=== PATIENT | female | born 1955 | race Caucasian/White ===

== ENCOUNTER 2019-05-02 07:34 | Observation (INO) | payer BC ==
[~2019-05-02 07:34] MED LIST: CEFAZOLIN 2 GM/50 ML (PMX) 50 ML IVPB
[2019-05-02] MEDS: ACETAMINOPHEN 500 MG TAB PO (08:19)
[2019-05-02] MEDS: SOD CHLORIDE 0.9% 1,000 ML IV (08:20)
[2019-05-02] MEDS ORDERED: CEFAZOLIN 1 GM INJ (08:37)
[2019-05-02] MEDS ORDERED: METOCLOPRAMIDE 10 MG INJ (08:37)
[2019-05-02] MEDS ORDERED: FENTAnyl 50 MCG/ML VIAL (08:37)
[2019-05-02] MEDS ORDERED: MIDAZOLAM 1 MG/ML 2 ML INJ (08:37)
[2019-05-02] MEDS ORDERED: FAMOTIDINE 20 MG INJ (08:37)
[2019-05-02] MEDS ORDERED: SEVOFLURANE 15 MIN (08:37)
[2019-05-02] MEDS ORDERED: ONDANSETRON 4 MG INJ (08:37)
[2019-05-02] MEDS ORDERED: ROCURONIUM 50 MG INJ (08:37)
[2019-05-02] MEDS ORDERED: PROPOFOL 40 ML (08:37)
[2019-05-02] MEDS ORDERED: ROPIVACAINE 0.5 % 30 ML VIAL (08:52)
[2019-05-02] MEDS ORDERED: DEXAMETHASONE 4 MG/ML 5 ML INJ (09:56)
[2019-05-02] MEDS ORDERED: KETOROLAC 30 MG INJ (09:56)
[2019-05-02] MEDS ORDERED: EPINEPHrine 0.1 MG/ML SYG (09:56)
[2019-05-02] MEDS ORDERED: SUGAMMADEX SODIUM 200 MG/2 ML VIAL IV (10:09)
[2019-05-02] MEDS ORDERED: DIPHENHYDRAMINE 50 MG INJ IV (10:30)
[2019-05-02] MEDS ORDERED: HYDROCODONE/APAP (5/325) TAB PO (10:30)
[2019-05-02] MEDS ORDERED: LABETALOL HCL 20MG INJ IV (10:30)
[2019-05-02] MEDS ORDERED: ONDANSETRON 4 MG INJ IV ×2 (10:30)
[2019-05-02] MEDS ORDERED: ALBUTEROL 0.083% (NEB) 2.5 MG/3 ML AMP HHN (10:30)
[2019-05-02] MEDS ORDERED: morphine 2 MG INJ IV ×3 (10:30)
[2019-05-02] MEDS ORDERED: HYDROmorphONE 1 MG/5 ML IV SYRINGE IV (10:30)
[2019-05-02] MEDS ORDERED: OXYCODONE/ACETAMINOPHEN (5/325) TAB PO ×2 (10:30)
[2019-05-02] MEDS ORDERED: FENTAnyl 50 MCG/ML VIAL IV ×2 (10:30)
[2019-05-02] MEDS ORDERED: MEPERIDINE 25 MG INJ (10:36)
[2019-05-02] MEDS: MEPERIDINE 25 MG INJ IV (10:45)
[2019-05-02] MEDS: HYDROmorphONE 1 MG/5 ML IV SYRINGE IV ×3 (10:59→11:13)
[2019-05-02] MEDS: D5W-0.45 NACL + KCL 20 MEQ 1,000 ML IV ×2 (12:00→20:19)
[2019-05-02] MEDS ORDERED: hydrALAzine 20 MG INJ IV (12:30)
[2019-05-02] MEDS: HYDROCODONE/APAP (5/325) TAB PO ×2 (15:13→23:46)
[2019-05-02 16:34] LABS: ADD MAN DIFF? NO
[2019-05-02 16:37] LABS: BASOPHILS % 0.1 % (0.0-2.0); HEMATOCRIT 36.5 % (37.0-47.0); HEMOGLOBIN 12.7 g/dl (12.0-16.0); LYMPHOCYTES # 0.7 10^3/ul (0.8-2.9); MEAN CORPUSCULAR HEMOGLOBIN 30.6 pg (29.0-33.0); MEAN CORPUSCULAR HGB CONC 34.8 g/dl (32.0-37.0); MEAN PLATELET VOLUME 11.6 fl (7.4-10.4); MONOCYTE # 0.2 10^3/ul (0.3-0.9); MONOCYTES % 1.5 % (0.0-11.0); NEUTROPHIL # 8.8 10^3/ul (1.6-7.5); PLATELET COUNT 167 10^3/UL (140-415); RED BLOOD COUNT 4.15 10^6/ul (4.20-5.40); RED CELL DISTRIBUTION WIDTH 12.7 % (11.5-14.5)
[2019-05-02 16:37] LABS: WHITE BLOOD COUNT 9.7 10^3/ul (4.8-10.8)
[2019-05-02 17:10] LABS: ALANINE AMINOTRANSFERASE 63 IU/L (13-69); ALBUMIN 4.2 g/dl (3.3-4.9); ALBUMIN/GLOBULIN RATIO 1.44; ALKALINE PHOSPHATASE 56 IU/L (42-121); ANION GAP 9 (5-13); ASPARTATE AMINO TRANSFERASE 43 IU/L (15-46); BILIRUBIN,INDIRECT 0.4 mg/dl (0-1.1); BILIRUBIN,TOTAL 0.4 mg/dl (0.2-1.3); BLOOD UREA NITROGEN 16 mg/dl (7-20); CALCIUM 8.8 mg/dl (8.4-10.2); CARBON DIOXIDE 23 mmol/L (21-31); CHLORIDE 109 mmol/L (97-110); CREATININE 0.47 mg/dl (0.44-1.00); Estimated GFR > 60 mL/min (>60); GLUCOSE 157 mg/dl (70-220); MAGNESIUM 1.7 mg/dl (1.7-2.5); PHOSPHORUS 3.2 mg/dl (2.5-4.9); POTASSIUM 4.1 mmol/L (3.5-5.1); SODIUM 141 mmol/L (135-144); TOTAL PROTEIN 7.1 g/dl (6.1-8.1)
[2019-05-02] MEDS: ACETAMINOPHEN 1000MG/100ML IV 100 ML IVPB (20:26)
[2019-05-03] MEDS: D5W-0.45 NACL + KCL 20 MEQ 1,000 ML IV (02:29)
[2019-05-03 05:29] LABS: ADD MAN DIFF? NO
[2019-05-03] MEDS: LEVOTHYROXINE 50 MCG TAB PO (05:30)
[2019-05-03 05:32] LABS: BASOPHILS % 0.1 % (0.0-2.0); HEMATOCRIT 36.1 % (37.0-47.0); HEMOGLOBIN 12.3 g/dl (12.0-16.0); LYMPHOCYTES # 1.3 10^3/ul (0.8-2.9); LYMPHOCYTES % 12.2 % (15.0-51.0); MEAN CORPUSCULAR HGB CONC 34.1 g/dl (32.0-37.0); MEAN PLATELET VOLUME 11.9 fl (7.4-10.4); MONOCYTE # 0.8 10^3/ul (0.3-0.9); MONOCYTES % 7.3 % (0.0-11.0); NEUTROPHIL # 8.8 10^3/ul (1.6-7.5); PLATELET COUNT 187 10^3/UL (140-415); RED CELL DISTRIBUTION WIDTH 12.8 % (11.5-14.5)
[2019-05-03 06:03] LABS: CHOLESTEROL 267 mg/dl (100-200)
[2019-05-03 06:03] LABS: CHOL/HDL RATIO 4.6 RATIO; HDL CHOLESTEROL 58 mg/dl (35-98); LDL CHOLESTEROL,CALCULATED 185 mg/dl; TRIGLYCERIDES 118 mg/dl (0-149)
[2019-05-03 06:10] LABS: ALANINE AMINOTRANSFERASE 49 IU/L (13-69); ALBUMIN 3.9 g/dl (3.3-4.9); ALBUMIN/GLOBULIN RATIO 1.39; ALKALINE PHOSPHATASE 52 IU/L (42-121); ANION GAP 8 (5-13); ASPARTATE AMINO TRANSFERASE 32 IU/L (15-46); BILIRUBIN,INDIRECT 0.6 mg/dl (0-1.1); BILIRUBIN,TOTAL 0.6 mg/dl (0.2-1.3); BLOOD UREA NITROGEN 8 mg/dl (7-20); CARBON DIOXIDE 23 mmol/L (21-31); CHLORIDE 112 mmol/L (97-110); CREATININE 0.49 mg/dl (0.44-1.00); Estimated GFR > 60 mL/min (>60); GLUCOSE 128 mg/dl (70-220); POTASSIUM 4.4 mmol/L (3.5-5.1); SODIUM 143 mmol/L (135-144); TOTAL PROTEIN 6.7 g/dl (6.1-8.1)
[2019-05-03 06:18] LABS: PHOSPHORUS 2.7 mg/dl (2.5-4.9)
== END 2019-05-03 09:55 | disposition home or self-care (01) ==
LOC: SDS 07:34 → REC 10:36 → MS1 11:52
DX: K80.10 Calculus of gallbladder with chronic cholecystitis without obstruction (principal); I10 Essential (primary) hypertension; E03.9 Hypothyroidism, unspecified; E78.5 Hyperlipidemia, unspecified; E66.9 Obesity, unspecified; Z68.30 Body mass index [BMI] 30.0-30.9, adult
CPT/HCPCS: 47562; 80053; 80061; 83036; 83735; 84100; 85025; 88304; 99217